=== PATIENT | male | born 1955 | race Caucasian/White ===

== ENCOUNTER 2018-03-28 17:39 | Inpatient (IN) | payer BC ==
--- NOTE | 2018-03-28 19:34 | PCM.HP ---
H&P History of Present Illness - General Date of Service: 03/28/18 Admit Problem/Dx: Admission Diagnosis/Problem Admission Diagnosis/Problem Alcohol abuse Source of Information: Patient, Provider History Limitations: Reports: No Limitations - History of Present Illness Initial Comments - Free Text/Narative: 63 year old male seen by his PCP was seen and evaluated in the ED by Hospitalist service for possible direct admit. The patient has a SUSAN 0.11, he is requesting help for ETOH withdrawal. When seen in the clinic at [facility] , he complained of abdominal pain to the provider at the clinic, however in the ED he denies complaints. He drinks beer and shots of Black Velvet daily, it appears that he consumes at least a 12 cans of beer. He has been dependent on tobacco and alcohol for at least thirty years. The patient has had pancreatitis in the past, however his LFTs/GI labs performed earlier today are unremarkable. He is a full code, and will admitted to the ICU. Onset of Symptoms: Reports: Unknown/Unsure Duration of Symptoms: Reports: Week(s):, Getting Worse Location: Reports: Generalized Severity: Moderate Improves with: Reports: Medication Worsens with: Reports: Other (drinking alcohol) Epigastric Pain Score (Numeric/FACES): 0 - Related Data Allergies/Adverse Reactions: Allergies Allergy/AdvReac Type Severity Reaction Status Date / Time No Known Allergies Allergy Verified 03/28/18 17:50 Home Medications: Home Meds Aspirin 81 mg PO DAILY 03/28/18 [History] Meloxicam [Mobic] 7.5 mg PO DAILY 03/28/18 [History] Metoprolol Succinate [Toprol Xl] 50 mg PO DAILY 03/28/18 [History] NIFEdipine [Procardia] 10 mg PO TID 03/28/18 [History] Pantoprazole [ProTONIX] 40 mg PO DAILY 03/28/18 [History] Past Medical History Respiratory History: Reports: Pneumonia, Recurrent Gastrointestinal History: Reports: Pancreatitis Psychiatric History: Reports: Addiction - Past Surgical History Neurological Surgical History: Reports: Lumbar Spine Social & Family History - Tobacco Use Smoking Status *Q: Current Every Day Smoker Years of Tobacco use: 35 Packs/Tins Daily: 2 - Recreational Drug Use Recreational Drug Use: No H&P Review of Systems - Review of Systems: Review Of Systems: See Below General: Reports: Fatigue HEENT: Reports: No Symptoms Pulmonary: Reports: No Symptoms Cardiovascular: Reports: No Symptoms Gastrointestinal: Reports: Abdominal Pain Genitourinary: Reports: No Symptoms Musculoskeletal: Reports: No Symptoms Skin: Reports: No Symptoms Psychiatric: Reports: Anxiety Neurological: Reports: Tremors Hematologic/Lymphatic: Reports: No Symptoms Immunologic: Reports: No Symptoms Exam - Exam Exam: See Below - Vital Signs Vital Signs: Last Vital Signs Temp 37.3 C 03/28/18 17:47 Pulse 65 03/28/18 17:47 Resp 16 03/28/18 17:47 BP 192/91 H 03/28/18 17:47 Pulse Ox 100 03/28/18 17:47 Weight: 88.904 kg - Exam Quality Assessment: Supplemental Oxygen General: Alert, Oriented, Cooperative HEENT: Conjunctiva Clear, EOMI, Nares Patent, Normal Nasal Septum, Pupils Equal , Pupils Reactive, PERRLA Neck: Supple, Trachea Midline Lungs: Clear to Auscultation, Normal Respiratory Effort Cardiovascular: Regular Rate, Regular Rhythm GI/Abdominal Exam: Normal Bowel Sounds, Soft, Non-Tender, No Organomegaly, No Distention (Male) Exam: Deferred Rectal (Males) Exam: Deferred Back Exam: Normal Inspection Extremities: Normal Inspection, No Pedal Edema, Normal Capillary Refill Skin: Warm Neurological: Cranial Nerves Intact, Normal Speech Neuro Extensive - Mental Status: Alert, Oriented x3 Psychiatric: Alert, Anxious - Patient Data Result Diagrams: 03/29/18 05:26 03/29/18 05:26 - Problem List (1) GERD (gastroesophageal reflux disease) SNOMED Code(s): 379920039 ICD Code: K21.9 - GASTRO-ESOPHAGEAL REFLUX DISEASE WITHOUT ESOPHAGITIS Status: Acute Current Visit: Yes (2) Hypertension SNOMED Code(s): 69244748 ICD Code: I10 - ESSENTIAL (PRIMARY) HYPERTENSION Status: Acute Current Visit: Yes (3) Pancreatitis SNOMED Code(s): 11654127 ICD Code: K85.90 - ACUTE PANCREATITIS WITHOUT NECROSIS OR INFECTION, UNSP Status: Resolved Current Visit: Yes (4) Tobacco dependence SNOMED Code(s): 59176533 ICD Code: F17.200 - NICOTINE DEPENDENCE, UNSPECIFIED, UNCOMPLICATED Status : Acute Current Visit: Yes Problem List Initiated/Reviewed/Updated: Yes Orders Last 24hrs: Active Orders 24 hr Category Date Time Status Patient Status [ADT] Routine ADT 03/28/18 18:46 Active Assessment/Plan Comment:: Impression: Alcohol dependence with a request for treatment Abdominal discomfort with a previous history of pancreatitis History of GERD Query depression/anxiety Tobacco dependence Plan: ICU with CIWA protocol Ativan IV/Librium po prn Replace electrolytes Daily labs Tobacco cessation/Nicotine replacement Consult psych/substance abuse DVT/GI prophylaxis
[2018-03-28] MEDS ORDERED: Magnesium Sulfate/Water 4 GM in Premix Bag 1 BAG IV ONE (19:48)
[2018-03-28] MEDS ORDERED: Metoprolol Tartrate 5 MG/5 ML SDV IVPUSH PRN (19:52)
[2018-03-28] MEDS ORDERED: LORazepam 2 MG/ML SDV IVPUSH PRN (19:54)
[2018-03-28] MEDS: chlordiazePOXIDE 25 MG Cap PO PRN (20:44)
[2018-03-28] MEDS: Magnesium Sulfate/Water 2 GM in Premix Bag 1 BAG IV SCH ×2 (20:44→22:33)
[2018-03-28] MEDS: Nicotine 21 MG/24 Hr Patch TRDERM SCH ×2 (20:44→20:46)
[2018-03-28] MEDS: Sodium Chloride 0.9% 1,000 ML IV SCH ×3 (20:44→22:36)
[2018-03-28] MEDS: Temazepam 15 MG Cap PO PRN (20:45)
[2018-03-28] MEDS: Terazosin 5 MG Cap PO SCH (20:45)
[2018-03-29] MEDS: chlordiazePOXIDE 25 MG Cap PO PRN ×2 (05:31→21:04)
[2018-03-29] MEDS: Pantoprazole 40 MG Tab.CR PO SCH ×2 (05:31→16:42)
[2018-03-29] MEDS: Sodium Chloride 0.9% 1,000 ML IV SCH ×3 (05:31→21:03)
[2018-03-29] MEDS: Terazosin 5 MG Cap PO SCH ×2 (08:03→21:03)
[2018-03-29] MEDS: Nicotine 21 MG/24 Hr Patch TRDERM SCH (08:03)
[2018-03-29] MEDS: Metoprolol Succinate 50 MG Tab.ER PO SCH (08:03)
[2018-03-29] MEDS: Topiramate 25 MG Tab PO SCH ×2 (09:59→21:04)
[2018-03-29] MEDS: Thiamine 100 MG Tab PO SCH (09:59)
[2018-03-29] MEDS: Folic Acid 1 MG Tab PO SCH (10:00)
--- NOTE | 2018-03-29 12:12 | PCM.PN ---
- General Info Date of Service: 03/29/18 Functional Status: Reports: Tolerating Diet (minimal, clear liquids only), Ambulating, Urinating - Review of Systems General: Reports: No Symptoms HEENT: Reports: No Symptoms Pulmonary: Reports: No Symptoms Cardiovascular: Reports: No Symptoms Gastrointestinal: Reports: No Symptoms Genitourinary: Reports: No Symptoms Musculoskeletal: Reports: No Symptoms Skin: Reports: No Symptoms Neurological: Reports: No Symptoms Psychiatric: Reports: Depression, Anxiety - Patient Data Vitals - Most Recent: Last Vital Signs Temp 36.5 C 03/29/18 12:00 Pulse 71 03/29/18 12:00 Resp 16 03/29/18 12:00 BP 148/80 H 03/29/18 12:00 Pulse Ox 96 03/29/18 12:00 Weight - Most Recent: 85.185 kg I&O - Last 24 Hours: Intake & Output 03/28/18 03/29/18 03/29/18 22:59 06:59 14:59 Intake Total 560 3155 240 Output Total 4000 Balance 560 -845 240 Lab Results Last 24 Hours: Laboratory Results - last 24 hr 03/29/18 03/29/18 Range/Units 05:26 05:26 WBC 6.44 (4.23-9.07) K/mm3 RBC 4.00 L (4.63-6.08) M/mm3 Hgb 12.2 L (13.7-17.5) gm/L Hct 35.6 L (40.1-51.0) % MCV 89.0 (79.0-92.2) fl MCH 30.5 (25.7-32.2) pg MCHC 34.3 (32.2-35.5) g/dl RDW Std Deviation 43.3 (35.1-43.9) fL Plt Count 295 (163-337) K/mm3 MPV 8.6 L (9.4-12.3) fl Neut % (Auto) 67.6 (34.0-67.9) % Lymph % (Auto) 17.1 L (21.8-53.1) % Valley % (Auto) 12.0 (5.3-12.2) % Eos % (Auto) 2.8 (0.8-7.0) Baso % (Auto) 0.5 (0.1-1.2) % Neut # (Auto) 4.36 (1.78-5.38) K/mm3 Lymph # (Auto) 1.10 L (1.32-3.57) K/mm3 Valley # (Auto) 0.77 (0.30-0.82) K/mm3 Eos # (Auto) 0.18 (0.04-0.54) K/mm3 Baso # (Auto) 0.03 (0.01-0.08) K/mm3 Sodium 131 L (136-145) mEq/L Potassium 4.0 (3.5-5.1) mEq/L Chloride 98 (98-107) mEq/L Carbon Dioxide 23 (21-32) mEq/L Anion Gap 14.0 (5-15) BUN 4 L (7-18) mg/dL Creatinine 0.8 (0.7-1.3) mg/dL Est Cr Clr Drug Dosing 100.12 mL/min Estimated GFR (MDRD) > 60 (>60) mL/min BUN/Creatinine Ratio 5.0 L (14-18) Glucose 113 (80-115) mg/dL Calcium 8.4 L (8.5-10.1) mg/dL Magnesium 2.3 (1.8-2.4) mg/dl Lipase 111 (73-393) U/L Med Orders - Current: Current Medications Chlordiazepoxide HCl (Librium) 25 mg PO TID PRN PRN Reason: Anxiety Last Admin: 03/29/18 05:31 Dose: 25 mg Folic Acid (Folic Acid) 1 mg PO DAILY [facility] Last Admin: 03/29/18 10:00 Dose: 1 mg Sodium Chloride (Normal Saline) 1,000 mls @ 100 mls/hr IV ASDIRECTED [facility] Last Admin: 03/29/18 12:05 Dose: 100 mls/hr Lorazepam (Ativan) 1 mg IVPUSH Q6H PRN PRN Reason: Anxiety Metoprolol Succinate (Toprol Xl) 50 mg PO DAILY [facility] Last Admin: 03/29/18 08:03 Dose: 50 mg Metoprolol Tartrate (Lopressor) 5 mg IVPUSH Q6H PRN PRN Reason: heart rate Miscellaneous Information (Remove Patch) 1 ea TRDERM DAILY [facility] Last Admin: 03/29/18 08:03 Dose: Not Given Nicotine (Habitrol) 21 mg TRDERM DAILY [facility] Last Admin: 03/29/18 08:03 Dose: Not Given Pantoprazole Sodium (Protonix) 40 mg PO BIDAC [facility] Last Admin: 03/29/18 05:31 Dose: 40 mg Temazepam (Restoril) 15 mg PO BEDTIME PRN PRN Reason: Sleep Last Admin: 03/28/18 20:45 Dose: 15 mg Terazosin HCl (Hytrin) 5 mg PO BID [facility] Last Admin: 03/29/18 08:03 Dose: 5 mg Thiamine HCl (Vitamin B-1) 100 mg PO DAILY [facility] Last Admin: 03/29/18 09:59 Dose: 100 mg Topiramate (Topamax) 25 mg PO BID [facility] Last Admin: 03/29/18 09:59 Dose: 25 mg Discontinued Medications Magnesium Sulfate 4 gm/ Premix 100 mls @ 300 mls/hr IV ONETIME ONE Stop: 03/28/18 19:49 Last Admin: 03/28/18 20:37 Dose: Not Given Sodium Chloride (Normal Saline) 1,000 mls @ 150 mls/hr IV ASDIRECTED [facility] Last Admin: 03/29/18 05:31 Dose: 150 mls/hr Magnesium Sulfate 2 gm/ Premix 50 mls @ 25 mls/hr IV Q1H [facility] Stop: 03/28/18 22:44 Last Admin: 03/28/18 22:33 Dose: 25 mls/hr - Exam Quality Assessment: Supplemental Oxygen, DVT Prophylaxis General: Alert, Oriented, Cooperative, No Acute Distress HEENT: Pupils Equal, Pupils Reactive, EOMI Neck: Trachea Midline, No JVD Lungs: Normal Respiratory Effort Cardiovascular: Regular Rate, Regular Rhythm GI/Abdominal Exam: Normal Bowel Sounds, Soft, Non-Tender, No Organomegaly, No Distention (Male) Exam: Deferred Back Exam: Normal Inspection Extremities: Normal Inspection, Non-Tender, Normal Capillary Refill Skin: Warm Neurological: No New Focal Deficit Psy/Mental Status: Alert, Anxious - Problem List Review Problem List Initiated/Reviewed/Updated: Yes - My Orders Last 24 Hours: My Active Orders 03/28/18 18:46 Patient Status [ADT] Routine 03/28/18 19:46 CIWAA Assessment [RC] Q1HR Vital Signs [RC] Q4HR Code Status [Resuscitation Status] Routine 03/28/18 19:52 Metoprolol Tartrate [Lopressor] 5 mg IVPUSH Q6H PRN 03/28/18 19:53 chlordiazePOXIDE [Librium] 25 mg PO TID PRN 03/28/18 19:54 LORazepam [Ativan] 1 mg IVPUSH Q6H PRN 03/28/18 19:56 Notify Provider Consults [RC] ASDIRECTED 03/28/18 20:00 Nicotine [Habitrol] 21 mg TRDERM DAILY 03/28/18 20:33 Temazepam [Restoril] 15 mg PO BEDTIME PRN 03/28/18 21:00 Terazosin [Hytrin] 5 mg PO BID 03/29/18 06:00 Pantoprazole [ProTONIX] 40 mg PO BIDAC 03/29/18 08:00 Consult to [facility] Compliance Coordinator [CONS] Routine FRANCISCO Hose [Antiembolic Hose] [OM.PC] Routine 03/29/18 09:00 Consult to Physician [CONS] Routine Metoprolol Succinate [Toprol XL] 50 mg PO DAILY Remove Patch 1 ea TRDERM DAILY 03/29/18 11:00 Consult for Substance Abuse [CONS] Routine 03/29/18 12:00 Sodium Chloride 0.9% [Normal Saline] 1,000 ml IV ASDIRECTED 03/30/18 05:00 BMP [BASIC METABOLIC PANEL,BMP] [CHEM] DAILY LIPASE [CHEM] DAILY MAGNESIUM [CHEM] DAILY 03/31/18 05:00 BMP [BASIC METABOLIC PANEL,BMP] [CHEM] DAILY MAGNESIUM [CHEM] DAILY 04/01/18 05:00 BMP [BASIC METABOLIC PANEL,BMP] [CHEM] DAILY MAGNESIUM [CHEM] DAILY 04/02/18 05:00 BMP [BASIC METABOLIC PANEL,BMP] [CHEM] DAILY MAGNESIUM [CHEM] DAILY - Plan Plan:: Impression: Alcohol dependence with a request for treatment Abdominal discomfort with a previous history of pancreatitis History of GERD-started Protonix 400 mg BIDAC Query depression/anxiety Tobacco dependence, declines replacement for now Plan: ICU with CIWA protocol Ativan IV/Librium po prn Replace electrolytes Daily labs Tobacco cessation/Nicotine replacement Consult psych-completed, meds have been started/substance abuse-pending DVT/GI prophylaxis
[2018-03-29] MEDS: Temazepam 15 MG Cap PO PRN (21:04)
--- NOTE | 2018-03-29 23:22 | CONS ---
CONSULTING PHYSICIAN: Levi Pemberton LAC DATE OF CONSULTATION: 03/29/2018 TIME: 10 p.m. The patient is a 63-year-old male admitted to [facility] ICU on 03/28/2018. An alcohol and drug evaluation were requested by his medical treatment team. SOURCE OF INFORMATION: Hospital records, staff report, prescription drug monitoring report, and background history. HISTORY OF PRESENT ILLNESS: The patient is a 63-year-old male brought to [facility] ED by his daughter after being seen by his PCP for abdominal pain. The patient's PCP referred him to [facility] ED. The patient reported to ED that he had pancreatitis in the past and that he consumes at least 12 cans of beer and shots of Black Velvet daily. The patient reported that his last drink was 03/27/2018 and his SUSAN was 0.11. The patient reported to hospital staff that he was requesting substance abuse treatment. PSYCHOSOCIAL HISTORY: The patient reports that he was born and raised in [place], [place], by his biological parents who are now both . He reports that he had 2 brothers who have both , 1 of cancer and the other of a heart attack. He also has a younger sister who had a recent heart attack. The patient reports that he graduated from [employer] in 1974 where he was involved in many extracurricular activities and maintained an average grade point. 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 He reports that after graduating, he went to work for [employer] for about 2-1/2 years, [employer] for some time, and [employer] for about 2-1/2 years. 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 In 2005, he went to work in the [employer] until 2012 when he decided to go back and work for [employer]. 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 The patient reports that 15 years ago he was from his as she had several serious suicide attempts and he reports "I could not take it anymore." He has 2 children from this marriage, a son and a daughter. He also has 3 grandchildren and states that he spends the bulk of his free time with them. The patient reports he currently lives in [facility] on [place] acres where he enjoys hunting, fishing, and dirt biking with his grandchildren. The patient states that his paternal grandmother was presbyterian and his mother was a Mosque; however, he has no spiritual beliefs. The patient is reporting that his employer has approached him about going to substance abuse treatment and his daughter is concerned for his drinking. Omayra Padilla, the director case management was consulted regarding this evaluation and she will be contacting the patient's daughter and offering our assistance with continuing substance abuse treatment. SUBSTANCE ABUSE HISTORY: The patient reports that he started drinking and smoking cigarettes socially with friends at age 18, as [facility] [place] and they could cross the border and buy beer and cigarettes under age. He reports that he was "an outlaw" growing up and states they drank every weekend and he would typically drink 6 to 8 beers or wine coolers or whatever liquor was available. 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 He states that if he went fishing they would buy 2 cases of beer and he would be good for 1 of them. During his 30s, 40s, and 50s, the patient reports that his drinking pattern never changed. He has drank 6 days a week with the exception of Sunday, which he uses to sober up for work. During the work week, he would drink 6 to 8 beers, and on the weekends, upwards of 15 beers each day. He reports he also drinks Black Velvet/Cokes on bad days, which he has about twice a week. On those days, he reports drinking 4 to 5 strong BV Cokes with 3 or 4 beer chasers. The patient states that 10 years ago, he decided to quit and was able to maintain sobriety for 3 years. He goes on to add that he made this decision because "somebody had to take care of my kids." The patient adds that it was a rough 3 years as his daughter got while in high school and his son also got in trouble. The patient reports that his father was an alcoholic and drank every day. He states that his father quit drinking at age 76, and 5 years later, of a heart attack. The patient denies blackouts, pass outs, or withdrawals. During this hospital admission, his CIWA scores have been unremarkable. The patient reports that he has never had substance abuse treatment, however, he was involved in AA during his 3 years of sobriety, 10 years ago as well as in 2013 after an APC. The patient denies all other illicit substance use. A prescription drug monitoring report was pulled and no information was found. The patient had a previous APC in 2013 where he subsequently attended a DUI class and some AA meetings. DIAGNOSES: The patient meets DSM-5 criteria for the following diagnoses: 1. F10.20, alcohol use disorder, severe. 2. F10.229 alcohol intoxication. 3. F17.200 tobacco use disorder, severe. ASAM DIMENSIONS: 1. Dimension 1: Score 1. The patient has a moderate intoxication upon admission with a SUSAN 0.11 and can tolerate and cope with withdrawal discomfort. 2. Dimension 2: Score 1. The patient tolerates and juan josé with physical discomfort and is able to get the services he needs. The patient is reporting high blood pressure and past pancreatitis. 3. Dimension 3: Score 1+. The patient presents as a mild risk of harm to self or others and functions adequately in significant life areas by self report. 4. Dimension 4: Score 3. The patient's resistance to treatment acceptance is moderately high despite negative consequences resulting from his alcohol use. The patient appears to require intensive motivating strategies in a 24-hour structure. 5. Dimension 5: Score 3. The patient has little recognition and understanding of relapse and recidivism issues and displays high vulnerability for further substance use. 6. Dimension 6: Score 2+. The patient is engaged in structured meaningful activity. However, this may be threatened. He lives alone with no restrictions on his drinking and verbalizes that he does not need or want anyone significant in his life. ASSESSMENT SUMMARY: The patient appears to be a man who continues a generational maladaptive alcohol addiction by self report. The patient is drinking in the exact pattern that his father drank, which is complicating his motivation for achieving and maintaining sobriety. The patient reports his father quit drinking at age 76 and of a heart attack at age 81. The patient concludes that his father may have because he stopped drinking and that he could have just drank for 5 more years with the same ending. It appears the patient intends to continue drinking. However, he verbalizes that he will use his willpower to quit because he does not want to suffer the negative medical consequences from drinking. However, 4 years ago, the patient reports that he was "flown by jet" to [facility] with severe pancreatitis. This incident did not stop him from continuing to drink as he reports his doctor told him to "not let any doctor tell him his pancreatitis was caused by alcohol." When asked if the doctor told him not to drink with pancreatitis, the patient replies "no." When asked if he thought it was okay to drink with pancreatitis, the patient replied "I guess not I am going to quit." The patient was asked if he would like professional assistance to help him achieve sobriety either on an inpatient or outpatient basis, and the patient stated "no, I quit before and I can do it again. I am doing it on my own." The patient was educated on the progression of alcoholism and the limits of willpower on the disease of alcoholism. The patient adamantly insisted that he did not want professional assistance from [facility] or Levi Pemberton LAC with any type of substance abuse treatment. The patient does not meet imminent danger criteria for a petition for involuntary commitment. The patient was advised regarding an outpatient commitment for treatment. However, the patient is unwilling to consider this option. The patient was advised about medically assisted treatment options and he reported that he would have to call his insurance sales representative before considering this option to see if he could afford it. The patient was advised regarding area of substance abuse facilities and programs and was offered future assistance with admission. The patient was given referral information for area facilities and Levi Pemberton LAC's business card should he need assistance in the future. Dr. Sinha and Omayra Padilla were consulted regarding this evaluation and was informed that the patient adamantly refused professional assistance or intervention with substance abuse treatment. RECOMMENDATIONS: The patient meets ASAM criteria for a level of 3.1 clinically managed low intensity residential treatment. The patient is refusing professional intervention or assistance with substance abuse treatment. The patient was advised that should he present to [facility] in the future with alcohol-related medical complications that a petition for involuntary commitment would be considered at that time. JANES /[id number]
[2018-03-30] MEDS: Pantoprazole 40 MG Tab.CR PO SCH (05:16)
[2018-03-30] MEDS: Topiramate 25 MG Tab PO SCH (08:00)
[2018-03-30] MEDS: Terazosin 5 MG Cap PO SCH (08:00)
[2018-03-30] MEDS: Thiamine 100 MG Tab PO SCH (08:00)
[2018-03-30] MEDS: Folic Acid 1 MG Tab PO SCH (08:00)
[2018-03-30] MEDS: Sodium Chloride 0.9% 1,000 ML IV SCH (08:01)
[2018-03-30] MEDS: Metoprolol Succinate 50 MG Tab.ER PO SCH (08:01)
[2018-03-30] MEDS ORDERED: Magnesium Sulfate/Water 4 GM in Premix Bag 1 BAG IV ONE (08:31)
[2018-03-30] MEDS ORDERED: Potassium Chloride/Sodium Chloride Tab PO ONE (08:50)
--- NOTE | 2018-03-30 09:03 | PCM.DCSUM1 ---
Discharge Summary - Hospital Course Free Text/Narrative:: ICU care per ETOH withdrawal protocol with electrolyte abnormalities. The patient was seen in the ED by hospitalist service as a direct admit. Consults were performed and coverage for ETOH withdrawal with appropriate pharmaceuticals. He was seen by psych/SA, an OP treatment program was suggested. The patient is expected to follow up with suggestions by the two consultants. He declined treatment for tobacco cessation. DC was to home, he is not to smoke or drink as recommended. Diagnosis: ETOH addiction/dependence Tobacco addiction/dependence Hyponatremia Hypomagnesemia Hypertension Follow OP substance abuse PCP Labs BMP Mg HPI Initial Comments: 63 year old male seen by his PCP was seen and evaluated in the ED by Hospitalist service for possible direct admit. The patient has a SUSAN 0.11, he is requesting help for ETOH withdrawal. When seen in the clinic at [facility] , he complained of abdominal pain to the provider at the clinic, however in the ED he denies complaints. He drinks beer and shots of Black Velvet daily, it appears that he consumes at least a 12 cans of beer. He has been dependent on tobacco and alcohol for at least thirty years. The patient has had pancreatitis in the past, however his LFTs/GI labs performed earlier today are unremarkable. He is a full code, and will admitted to the ICU. Diagnosis: Stroke: No - Discharge Data Discharge Date: 03/30/18 Discharge Disposition: Home, Self-Care 01 Condition: Good - Discharge Diagnosis/Problem(s) (1) Alcohol withdrawal SNOMED Code(s): 528585259 ICD Code: F10.239 - ALCOHOL DEPENDENCE WITH WITHDRAWAL, UNSPECIFIED Status : Acute (2) Hypomagnesemia SNOMED Code(s): 567251664 ICD Code: E83.42 - HYPOMAGNESEMIA Status: Chronic (3) Hypokalemia SNOMED Code(s): 36013654 ICD Code: E87.6 - HYPOKALEMIA Status: Ruled-out (4) Hyponatremia SNOMED Code(s): 48225900 ICD Code: E87.1 - HYPO-OSMOLALITY AND HYPONATREMIA Status: Chronic - Patient Summary/Data Consults: Consultations 03/29/18 08:00 Consult to Cyber Security Instructor [CONS] Routine 03/29/18 09:00 Consult to Physician [CONS] Routine 03/29/18 11:00 Consult for Substance Abuse [CONS] Routine - Patient Instructions Diet: Heart Healthy Diet Activity: As Tolerated Driving: May Drive Today Showering/Bathing: May Shower Notify Provider of: Fever, Increased Pain, Nausea and/or Vomiting - Discharge Plan Prescriptions/Med Rec: Folic Acid 1 mg PO DAILY #30 tablet Metoprolol Succinate [Toprol XL 50mg] 50 mg PO DAILY #30 tab.er Thiamine [Vitamin B-1] 100 mg PO DAILY #30 tablet Topiramate [Topamax] 25 mg PO BID #60 tablet Home Medications: Home Meds Aspirin 81 mg PO DAILY 03/28/18 [History] NIFEdipine [Procardia] 10 mg PO TID 03/28/18 [History] Pantoprazole [ProTONIX] 40 mg PO DAILY 03/28/18 [History] Folic Acid 1 mg PO DAILY #30 tablet 03/30/18 [Rx] Metoprolol Succinate [Toprol XL 50mg] 50 mg PO DAILY #30 tab.er 03/30/18 [Rx] Thiamine [Vitamin B-1] 100 mg PO DAILY #30 tablet 03/30/18 [Rx] Topiramate [Topamax] 25 mg PO BID #60 tablet 03/30/18 [Rx] Other Amb Orders: BASIC METABOLIC PANEL,BMP [CHEM] Time Frame: 04/05/18, Facility: [facility], Location: Pneumatic Tube Operator Unit [facility] MAGNESIUM [CHEM] Time Frame: 04/05/18, Facility: [facility], Location: Pneumatic Tube Operator Unit [facility] Patient Handouts: Coping with Quitting Smoking, Heart Disease Prevention, What You Need to Know About Alcohol Abuse and Dependence, Adult, Food Choices for Gastroesophageal Reflux Disease, Adult, Managing Your Hypertension, Steps to Quit Smoking, Alcohol Withdrawal, Ylms-op-Owua Referrals: Julia Rodriguez PA [Primary Care Provider] - - Discharge Summary/Plan Comment DC Time >30 min.: No - General Info Date of Service: 03/28/18 Functional Status: Reports: Tolerating Diet, Ambulating, Urinating - Review of Systems General: Reports: No Symptoms HEENT: Reports: No Symptoms Pulmonary: Reports: No Symptoms Cardiovascular: Reports: No Symptoms Gastrointestinal: Reports: No Symptoms Genitourinary: Reports: No Symptoms Musculoskeletal: Reports: No Symptoms Skin: Reports: No Symptoms Neurological: Reports: No Symptoms Psychiatric: Reports: No Symptoms - Patient Data Vitals - Most Recent: Last Vital Signs Temp 36.4 C 03/30/18 04:00 Pulse 58 L 03/30/18 08:01 Resp 18 03/30/18 04:00 BP 161/89 H 03/30/18 08:01 Pulse Ox 95 03/30/18 04:00 Weight - Most Recent: 84.55 kg I&O - Last 24 hours: Intake & Output 03/29/18 03/30/18 03/30/18 22:59 06:59 14:59 Intake Total 1440 2000 600 Output Total 700 2400 Balance 740 -400 600 Lab Results - Last 24 hrs: Laboratory Results - last 24 hr 03/29/18 03/30/18 Range/Units 17:45 05:57 Sodium 132 L 133 L (136-145) mEq/L Potassium 4.5 4.1 (3.5-5.1) mEq/L Chloride 101 101 (98-107) mEq/L Carbon Dioxide 23 23 (21-32) mEq/L Anion Gap 12.5 13.1 (5-15) BUN 11 10 (7-18) mg/dL Creatinine 1.0 0.9 (0.7-1.3) mg/dL Est Cr Clr Drug Dosing 80.10 89.00 mL/min Estimated GFR (MDRD) > 60 > 60 (>60) mL/min BUN/Creatinine Ratio 11.0 L 11.1 L (14-18) Glucose 101 98 (80-115) mg/dL Calcium 8.5 8.6 (8.5-10.1) mg/dL Magnesium 1.7 L (1.8-2.4) mg/dl Lipase 179 (73-393) U/L Med Orders - Current: Current Medications Chlordiazepoxide HCl (Librium) 25 mg PO TID PRN PRN Reason: Anxiety Last Admin: 03/29/18 21:04 Dose: 25 mg Folic Acid (Folic Acid) 1 mg PO DAILY [facility] Last Admin: 03/30/18 08:00 Dose: 1 mg Sodium Chloride (Normal Saline) 1,000 mls @ 100 mls/hr IV ASDIRECTED [facility] Last Admin: 03/30/18 08:01 Dose: 100 mls/hr Magnesium Sulfate 4 gm/ Premix 100 mls @ 50 mls/hr IV ONETIME ONE Stop: 03/30/18 10:30 Last Admin: 03/30/18 08:41 Dose: 50 mls/hr Lorazepam (Ativan) 1 mg IVPUSH Q6H PRN PRN Reason: Anxiety Metoprolol Succinate (Toprol Xl) 50 mg PO DAILY [facility] Last Admin: 03/30/18 08:01 Dose: 50 mg Metoprolol Tartrate (Lopressor) 5 mg IVPUSH Q6H PRN PRN Reason: heart rate Miscellaneous Information (Remove Patch) 1 ea TRDERM DAILY [facility] Last Admin: 03/29/18 08:03 Dose: Not Given Nicotine (Habitrol) 21 mg TRDERM DAILY [facility] Last Admin: 03/29/18 08:03 Dose: Not Given Pantoprazole [facility]) [facility] Last Admin: 03/30/18 05:16 Dose: 40 mg Temazepam (Restoril) 15 mg PO BEDTIME PRN PRN Reason: Sleep Last Admin: 03/29/18 21:04 Dose: 15 mg Terazosin HCl (Hytrin) 5 mg PO BID [facility] Last Admin: 03/30/18 08:00 Dose: 5 mg Thiamine HCl (Vitamin B-1) 100 mg PO DAILY [facility] Last Admin: 03/30/18 08:00 Dose: 100 mg Topiramate (Topamax) 25 mg PO BID [facility] Last Admin: 03/30/18 08:00 Dose: 25 mg Discontinued Medications Magnesium Sulfate 4 gm/ Premix 100 mls @ 300 mls/hr IV ONETIME ONE Stop: 03/28/18 19:49 Last Admin: 03/28/18 20:37 Dose: Not Given Sodium Chloride (Normal Saline) 1,000 mls @ 150 mls/hr IV ASDIRECTED [facility] Last Admin: 03/29/18 05:31 Dose: 150 mls/hr Magnesium Sulfate 2 gm/ Premix 50 mls @ 25 mls/hr IV Q1H [facility] Stop: 03/28/18 22:44 Last Admin: 03/28/18 22:33 Dose: 25 mls/hr Oral Electrolytes (Thermotabs) 2 each PO ONETIME ONE Stop: 03/30/18 08:51 Last Admin: 03/30/18 08:49 Dose: 2 each - Exam Quality Assessment: Reports: DVT Prophylaxis General: Reports: Alert, Oriented, Cooperative, No Acute Distress HEENT: Reports: Pupils Equal, Pupils Reactive, EOMI Neck: Reports: Trachea Midline, No JVD Lungs: Reports: Normal Respiratory Effort Cardiovascular: Reports: Regular Rate, Regular Rhythm GI/Abdominal Exam: Normal Bowel Sounds, Soft, Non-Tender, No Organomegaly, No Distention (Male) Exam: Deferred Rectal (Males) Exam: Deferred Back Exam: Reports: Normal Inspection Extremities: Normal Inspection Skin: Reports: Warm Neurological: Reports: No New Focal Deficit Psy/Mental Status: Reports: Alert, Depressed
[2018-03-30] MEDS: Nicotine 21 MG/24 Hr Patch TRDERM SCH (10:19)
--- NOTE | 2018-04-01 09:03 | CONS ---
CONSULTING PHYSICIAN: Mickey Geronimo MD DATE OF CONSULTATION: 03/29/2018 This is a 60-minute inpatient clinical event. IDENTIFICATION: The patient is a 63-year-old male, who was admitted to the Inpatient MICU at [facility] in [place], [place], on 03/28/2018. He is seen for psychiatric evaluation. CHIEF COMPLAINT: "I drink too much. My stomach was hurting." HISTORY OF PRESENT ILLNESS: The patient is a 63-year-old male, who reports he is drinking about "a 6-pack a day" and he states that he was having stomach issues and his daughter said to him "I think you're getting hyponatremic again." Evidently, the patient has had drinking problems for many years, and in the past when he has been drinking pretty heavily he has gotten episodes of hyponatremia, which is the case this time. Collateral information received from the family, who reports the patient drinks about 6 to 12 beers a day and 4 to 6 shots of hard liquor a day. The patient denies that he is depressed. He denies any problems with mood swings or anxiety. He states "I do not have any complaints" from psychiatric standpoint or mood wells, but he does acknowledge he has been drinking too much, and he feels that going for his goal is "to try and quit drinking." He states "I am not getting any younger" and he states he recognizes that these health issues are not the best occurrences for him to be experiencing. The only other complaint that the patient has besides why to get sober is that he does have poor sleep maintenance. He states he gets maybe about 5 to 6 hours of sleep per 24-hour. But he is waking up quite a bit during that time, that says he still has good energy levels. He does not feel he needs any antidepressant or psychiatric intervention at this point in time, but would like to have resources put in place to help with him getting sober. MEDICATIONS: At the time of presentation, none. ALLERGIES: No known drug allergies. PAST MEDICAL HISTORY: 1. Hyponatremia. 2. Hypokalemia. 3. Past history of seizure activity in 2002 when he had a previous episode of hyponatremia in the face of heavy alcohol use. 4. History of pancreatitis. 5. History of pneumonia. REVIEW OF SYSTEMS: Aside from metabolic, neuro, GI, and pulmonary all other major organ systems are negative at this point in time for acute difficulties or complications. FAMILY PSYCHIATRIC AND CD HISTORY: None reported. PAST PSYCHIATRIC AND CD HISTORY: The patient denies any previous psychiatric hospitalizations or chemical dependency treatments. He does report he has been using alcohol for many years, but he did have sobriety period of about 3-1/2 years, "about 6 to 7 years ago, I just quit." The patient states he felt very good when he was maintaining sobriety and he would like to get sober again. He does report an extensive history of DWIs, reporting about 4 DWIs in the past with the last one being in 2013. He denies any previous suicide attempts or any past psychiatric medication history. SOCIAL HISTORY: The patient was born in [place], [place], raised in [place], [place]. He is the third of 5 siblings and 2 brothers and 2 sisters. The patient's parents were throughout his childhood and adolescence. His father was internal affairs investigator for his local community. Mother was a homemaker. The patient's highest level of education is 2 years of college. 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 He is x1, but for the past 15 years. Not involved in any current relationships. He has 2 children from the marriage. Son and a daughter, whom he remains very close to. He lives by himself down in [place], [place]. He denies any prior service or current legal difficulties. He is raised [facility] He enjoys hunting and fishing in his spare time. MENTAL STATUS EXAM: The patient is a 63-year-old, soft-spoken white male in no apparent distress. Speech is of regular rate and rhythm. The patient is cognitively oriented. Psychomotor activity is within normal limits. There is no abnormal motor movements or tics observed. Gait and station are not observed as the patient is lying in bed for the purposes of the inpatient consult. Mood is "okay." Affect is cooperative overall for the purposes of the inpatient consult. There is no behavioral or stated evidence of acute suicidal or homicidal ideation or acute psychotic, delusional, or paranoid symptoms. Thought processes appear organized. There are no manic symptoms or loose associations evident. Judgment and insight appear unimpaired at this point in time. Motivation for help appears fair to good. VITALS: 157/81, 68, 18, 98.7 degrees. IMPRESSION: [place] I: Alcohol dependence, F10.20. [place] II: None. [place] III: 1. Hyponatremia. 2. Hypokalemia. 3. History of seizure activity, back in in 2014. 4. History of pancreatitis. 5. History of pneumonia. [place] IV: Severe. [place] V: 55. PLAN: 1. Sobriety. 2. AA rep to visit the patient. 3. Pastoral guidance. 4. Chemical dependency consult for the purposes of assessing and providing resources to the patient for his alcohol dependence. 5. Folic acid supplementation. 6. Thiamine supplementation. 7. Sleep aid such as Seroquel or Restoril for the patient to help with sleep initiation and maintenance while on the unit. 8. Topamax 25 mg b.i.d. for seizure prophylaxis. 9. Ativan per [facility] protocol. 10.Recommend chemical dependency treatment if needed once the patient is medically stabilized, whether it be on an outpatient or inpatient basis. 11.We will continue to follow up with the patient on as needed basis while he remains on the inpatient MICU at [facility]. 12.We will follow up with the patient sooner if any complications in the interim. 13.No psychiatric intervention is indicated at this point in time, recommend treatment planning per recommendations of primary inpatient medical treatment team. 14.Crisis plan is in place. JANES /[id number] MTDD
== END 2018-03-30 11:08 | disposition home or self-care (01) | DRG 775 ==
LOC: JD.ED 17:39 → UNDOADMIN 18:59 → JD.ICU 18:59
PROVIDERS: ADMIT Internal Medicine Cardiovascular Disease; ATTEND Internal Medicine Cardiovascular Disease
DX: F10.239 Alcohol dependence with withdrawal, unspecified (principal); Y90.5 Blood alcohol level of 100-119 mg/100 ml; F17.200 Nicotine dependence, unspecified, uncomplicated; E87.1 Hypo-osmolality and hyponatremia; E87.6 Hypokalemia; K21.9 Gastro-esophageal reflux disease without esophagitis; R10.9 Unspecified abdominal pain; E83.42 Hypomagnesemia; I10 Essential (primary) hypertension; Z79.82 Long term (current) use of aspirin; Z79.899 Other long term (current) drug therapy; R10.13 Epigastric pain
CPT/HCPCS: 36415; 80048; 80053; 81001; 82977; 83690; 83735; 84443; 85007; 85025; 85027; 85610; 86140; 99222; 99231; 99238; A9270-GY; G0480; J3475; J7040

== ENCOUNTER 2025-05-23 13:41 | Emergency (ER) | payer MEDICARE, BC ==
[2025-05-23] MEDS ORDERED: Sodium Chloride 0.9% 10 ML Syringe FLUSH PRN (14:08)
[2025-05-23 14:28] LABS: BASOPHILS ABSOLUTE AUTO 0.1 K/mm3 (0.0-0.2); BASOPHILS PERCENT AUTO 0.5 % (0.0-1.0); EOSINOPHILS ABSOLUTE AUTO 0.5 K/mm3 (0.0-0.4); EOSINOPHILS PERCENT AUTO 5.0 % (0.0-6.0); IMMATURE GRAN ABSOLUTE AUTO 0.03 K/mm3 (0.00-0.05); IMMATURE GRAN PERCENT AUTO 0.3 % (0.0-0.4); LYMPHOCYTES ABSOLUTE AUTO 2.4 K/mm3 (1.0-4.8); LYMPHOCYTES PERCENT AUTO 22.1 % (24.0-44.0); MEAN PLATELET VOLUME 8.7 fl (9.4-12.4); MONOCYTES ABSOLUTE AUTO 0.8 K/mm3 (0.0-0.8); MONOCYTES PERCENT AUTO 7.2 % (0.0-8.0); NEUTROPHILS ABSOLUTE AUTO 7.1 K/mm3 (1.8-7.7); NEUTROPHILS PERCENT AUTO 64.9 % (41.0-71.0); NRBC ABSOLUTE 0.00 (0.00-0.02); NRBC PERCENT 0.0 % (0.0-0.2); PLATELET COUNT,PLT 350 K/mm3 (150-400); RED BLOOD CELL COUNT 3.77 M/mm3 (4.52-5.90); WHITE BLOOD CELL COUNT,WBC 10.87 K/mm3 (3.9-11.3)
[2025-05-23 14:55] LABS: A/G RATIO 1.2 (1-2); ASPARTATE AMNIOTRANSFERASE,AST 15.0 U/L (15-37); BLOOD UREA NITROGEN,BUN 12.0 mg/dL (7-18); ESTIMATED GFR 100.0 mL/min (>60); GLUCOSE RANDOM 101.0 mg/dL (70-99)
[2025-05-23] MEDS: Iopamidol 755 Mg/ML 100 ML Bottle IVPUSH ONE (14:56)
[2025-05-23 15:15] LABS: ALANINE AMINOTRANSFERASE,ALT 21.0 U/L (16-63); BILIRUBIN TOTAL 0.5 mg/dL (0.2-1.0); CARBON DIOXIDE,CO2 22.0 mEq/L (21-32); CHLORIDE,CL 103.0 mEq/L (98-107); CREATININE 0.7 mg/dL (0.7-1.3); EST CRCL DRUG DOSING (CG) 101.0 mL/min; POTASSIUM,K 4.4 mEq/L (3.5-5.1); PROTEIN TOTAL,TP 7.0 g/dl (6.4-8.2); SODIUM,NA 135.0 mEq/L (136-145); TROPONIN I HIGH SENSITIVITY 4.0 pg/mL (<=76)
== END 2025-05-23 17:25 | disposition home or self-care (01) ==
LOC: JD.ED 13:41
DX: K85.80 Other acute pancreatitis without necrosis or infection (principal); I10 Essential (primary) hypertension; Z79.899 Other long term (current) drug therapy
CPT/HCPCS: 36415; 71275; 74177; 80053; 83690; 83735; 84484; 85025; 86140; 93005; 99285; Q9967

== ENCOUNTER 2025-07-11 13:11 | Emergency (ER) | payer MEDICARE, BC ==
[2025-07-11] MEDS ORDERED: Naloxone 0.4 MG/ML SDV IVPUSH PRN (13:46)
[2025-07-11 14:27] LABS: BASOPHILS ABSOLUTE AUTO 0.1 K/mm3 (0.0-0.2); BASOPHILS PERCENT AUTO 0.6 % (0.0-1.0); EOSINOPHILS ABSOLUTE AUTO 0.5 K/mm3 (0.0-0.4); EOSINOPHILS PERCENT AUTO 4.1 % (0.0-6.0); IMMATURE GRAN ABSOLUTE AUTO 0.06 K/mm3 (0.00-0.05); IMMATURE GRAN PERCENT AUTO 0.5 % (0.0-0.4); LYMPHOCYTES ABSOLUTE AUTO 2.4 K/mm3 (1.0-4.8); LYMPHOCYTES PERCENT AUTO 19.5 % (24.0-44.0); MEAN PLATELET VOLUME 8.9 fl (9.4-12.4); MONOCYTES ABSOLUTE AUTO 1.0 K/mm3 (0.0-0.8); MONOCYTES PERCENT AUTO 8.1 % (0.0-8.0); NEUTROPHILS ABSOLUTE AUTO 8.1 K/mm3 (1.8-7.7); NEUTROPHILS PERCENT AUTO 67.2 % (41.0-71.0); NRBC ABSOLUTE 0.00 (0.00-0.02); NRBC PERCENT 0.0 % (0.0-0.2); PLATELET COUNT,PLT 402 K/mm3 (150-400); RED BLOOD CELL COUNT 3.99 M/mm3 (4.52-5.90); WHITE BLOOD CELL COUNT,WBC 12.05 K/mm3 (3.9-11.3)
[2025-07-11 14:35] LABS: INR 1.17
[2025-07-11 14:40] LABS: A/G RATIO 1.1 (1-2); ALANINE AMINOTRANSFERASE,ALT 20.0 U/L (16-63); ASPARTATE AMNIOTRANSFERASE,AST 11.0 U/L (15-37); BILIRUBIN TOTAL 0.6 mg/dL (0.2-1.0); BLOOD UREA NITROGEN,BUN 11.0 mg/dL (7-18); CARBON DIOXIDE,CO2 26.0 mEq/L (21-32); CHLORIDE,CL 102.0 mEq/L (98-107); CREATININE 0.8 mg/dL (0.7-1.3); EST CRCL DRUG DOSING (CG) 88.38 mL/min; ESTIMATED GFR 96.0 mL/min (>60); GLUCOSE RANDOM 85.0 mg/dL (70-99); POTASSIUM,K 3.7 mEq/L (3.5-5.1); PROTEIN TOTAL,TP 6.8 g/dl (6.4-8.2); SODIUM,NA 139.0 mEq/L (136-145); TROPONIN I HIGH SENSITIVITY 5.0 pg/mL (<=76)
[2025-07-11] MEDS: Ondansetron 4 MG/2 ML SDV IVPUSH ONE ×2 (14:45→14:47)
[2025-07-11 14:46] LABS: ETHANOL BLOOD MEDICAL 0.0 gm% (0.00)
[2025-07-11] MEDS: Iopamidol 755 Mg/ML 100 ML Bottle IVPUSH ONE (17:44)
[2025-07-11 17:54] LABS: BUPRENORPHINE SCREEN,URINE NEGATIVE (CUTOFF=10); METHADONE SCREEN, URINE NEGATIVE (CUT0FF=200); METHAMPHETAMINES SCREEN, URINE NEGATIVE (CUTOFF=500); OXYCODONE SCREEN,URINE NEGATIVE (CUT0FF=100); THC SCREEN,URINE 20 NG/ML NEGATIVE (CUTOFF=50)
[2025-07-11 18:06] LABS: AMPHETAMINES SCREEN, URINE NEGATIVE (CUTOFF=500)
[2025-07-11] MEDS: Acetaminophen/oxyCODONE 325-5 MG Tab PO ONE (19:21)
== END 2025-07-11 20:00 | disposition home or self-care (01) ==
LOC: JD.ED 13:11
DX: K86.1 Other chronic pancreatitis (principal); I10 Essential (primary) hypertension; Z79.82 Long term (current) use of aspirin; Z79.899 Other long term (current) drug therapy
CPT/HCPCS: 36415; 74178; 76705; 80053; 80306; 80307; 83690; 83735; 84484; 85025; 85610; 93005; 96361; 96374; 96375; 99284; A9270; J2405; J7030; Q9967; 74177; 93010; J1171

== ENCOUNTER 2025-09-04 11:01 | Emergency (ER) | payer MEDICARE, BC ==
[2025-09-04 11:46] LABS: BASOPHILS ABSOLUTE AUTO 0.1 K/mm3 (0.0-0.2); BASOPHILS PERCENT AUTO 0.5 % (0.0-1.0); EOSINOPHILS ABSOLUTE AUTO 0.4 K/mm3 (0.0-0.4); EOSINOPHILS PERCENT AUTO 2.4 % (0.0-6.0); IMMATURE GRAN ABSOLUTE AUTO 0.04 K/mm3 (0.00-0.05); IMMATURE GRAN PERCENT AUTO 0.2 % (0.0-0.4); LYMPHOCYTES ABSOLUTE AUTO 2.1 K/mm3 (1.0-4.8); LYMPHOCYTES PERCENT AUTO 13.1 % (24.0-44.0); MEAN PLATELET VOLUME 9.1 fl (9.4-12.4); MONOCYTES ABSOLUTE AUTO 1.0 K/mm3 (0.0-0.8); MONOCYTES PERCENT AUTO 6.4 % (0.0-8.0); NEUTROPHILS ABSOLUTE AUTO 12.6 K/mm3 (1.8-7.7); NEUTROPHILS PERCENT AUTO 77.4 % (41.0-71.0); NRBC ABSOLUTE 0.00 (0.00-0.02); NRBC PERCENT 0.0 % (0.0-0.2); PLATELET COUNT,PLT 336 K/mm3 (150-400); RED BLOOD CELL COUNT 4.05 M/mm3 (4.52-5.90); WHITE BLOOD CELL COUNT,WBC 16.22 K/mm3 (3.9-11.3)
[2025-09-04 12:12] LABS: A/G RATIO 1.1 (1-2); ALANINE AMINOTRANSFERASE,ALT 20.0 U/L (16-63); ASPARTATE AMNIOTRANSFERASE,AST 16.0 U/L (15-37); BILIRUBIN TOTAL 0.5 mg/dL (0.2-1.0); BLOOD UREA NITROGEN,BUN 11.0 mg/dL (7-18); CARBON DIOXIDE,CO2 26.0 mEq/L (21-32); CHLORIDE,CL 108.0 mEq/L (98-107); CREATININE 0.8 mg/dL (0.7-1.3); EST CRCL DRUG DOSING (CG) 91.25 mL/min; ESTIMATED GFR 96.0 mL/min (>60); GLUCOSE RANDOM 69.0 mg/dL (70-99); POTASSIUM,K 3.7 mEq/L (3.5-5.1); PROTEIN TOTAL,TP 6.4 g/dl (6.4-8.2); SODIUM,NA 143.0 mEq/L (136-145)
[2025-09-04] MEDS: Sodium Chloride 0.9% 10 ML Syringe FLUSH PRN ×2 (12:30→12:40)
[2025-09-04] MEDS: Iopamidol 612 MG/ML 100 ML Bottle IVPUSH ONE (12:30)
[2025-09-04 13:45] LABS: APPEARANCE,URINE CLEAR (Clear); GLUCOSE,URINE NEGATIVE (Negative); OCCULT BLOOD,URINE NEGATIVE (Negative)
== END 2025-09-04 14:32 | disposition home or self-care (01) ==
LOC: JD.ED 11:01
DX: K21.9 Gastro-esophageal reflux disease without esophagitis (principal); K86.1 Other chronic pancreatitis; I10 Essential (primary) hypertension; I25.2 Old myocardial infarction; Z86.16 Personal history of COVID-19; Z79.82 Long term (current) use of aspirin; Z79.899 Other long term (current) drug therapy
CPT/HCPCS: 36415; 74177; 80053; 81003; 83690; 85025; 86140; 96360; 96361; 99284; J7030; Q9967